=== PATIENT | female | born 2000 | race Caucasian/White ===

== ENCOUNTER 2024-03-29 01:03 | Emergency (ER) | payer OTHER ==
[2024-03-29] MEDS ORDERED: SULFAMETHOXAZOLE/TRIMETHOPRIM 800MG/160MG D.S. TABLET ONE (01:13)
[2024-03-29] MEDS: SULFAMETHOXAZOLE/TRIMETHOPRIM 800MG/160MG D.S. TABLET PO ONE (01:15)
[2024-03-29 01:16] VITALS: BP 103/76; PULSE 84; RESP 16; TEMP 99.3; BMI 21.7
== END 2024-03-29 01:19 | disposition home or self-care (01) ==
LOC: FER 01:03
DX: L08.9 Local infection of the skin and subcutaneous tissue, unspecified (principal)
CPT/HCPCS: 99283-25